=== PATIENT | female | born 2000 | race American Indian/Alaskan Native ===

== ENCOUNTER 2018-09-09 21:28 | Inpatient (IN) | payer BC ==
[~2018-09-09] VITALS: Ht 157.5 cm; Wt 83.0 kg
[~2018-09-09 21:28] MED LIST: PROMETHAZINE12.5 M1 PO; ZOFRAN ODT4 MG PO
--- NOTE | 2018-09-10 07:41 | PR ---
[facility] [address] [facility] [place], [place] [address] Signed Progress Notes IP Datetime Report Generated by CPN: 09/10/2018 07:41 PROGRESS NOTES: [id number] Impression: Normal progression of labor Procedures: Artificial ROM Plan: Continue present management; Anticipate Vaginal Delivery VITAL SIGNS: [id number] Vital Signs: Reviewed; Within Normal Limits EXAM: [id number] Dilatation: 4.0 Effacement: 100 Station: -1 Uterine Contractions: every 4-5 min MEMBRANES: [id number] Membrane Status: Ruptured Amniotic Fluid Color: Clear ROM Note: AROM easily done, with moderated fluid Comments: Comfortable with Epidural Fetus A: [id number] FHR Baseline: 130 Variability: Moderate 6-25bpm Accelerations: 15X15 Presentation: Vertex Fetus B: [id number] Signing Physician: Abdiel Corona MD Copies: ~ *Electronically Signed* 09/10/18 0741 ABDIEL CORONA MD PATIENT NAME: KADEN MONIQUE PROGRESS NOTE DATE OF : 98 PHYSICIAN: ABDIEL CORONA MD RPT #: [id number] REPORT IS CONFIDENTIAL AND NOT TO BE RELEASED WITHOUT AUTHORIZATION
--- NOTE | 2018-09-10 11:11 | PR ---
[facility] [address] [facility] [place], [place] [address] Signed Progress Notes IP Datetime Report Generated by CPN: 09/10/2018 11:11 PROGRESS NOTES: [id number] Impression: Slow Progression of Labor Procedures: Intrauterine Pressure Catheter; Scalp Electrode Plan: Continue present management VITAL SIGNS: [id number] Vital Signs: Reviewed; Within Normal Limits EXAM: [id number] Dilatation: 6.0 Effacement: 100 Station: -1 Uterine Contractions: every 2-4 minutes MEMBRANES: [id number] Membrane Status: Ruptured Amniotic Fluid Color: Clear ROM Note: AROM easily done, with moderated fluid Comments: No manager of change past 2 hours, contractions not feeling strong, but patient getting uncomfortable. Internal monitors placed. WIll get EPidural redose, then start Pitocin augmentation. Fetus A: [id number] FHR Baseline: 140 Variability: Moderate 6-25bpm Accelerations: 15X15 Presentation: Vertex Fetus B: [id number] Signing Physician: Abdiel Corona MD Copies: ~ *Electronically Signed* 09/10/18 1111 ABDIEL CORONA MD PATIENT NAME: KADEN MONIQUE NIDIA PROGRESS NOTE DATE OF : 98 PHYSICIAN: ABDIEL CORONA MD RPT #: [id number] REPORT IS CONFIDENTIAL AND NOT TO BE RELEASED WITHOUT AUTHORIZATION
--- NOTE | 2018-09-10 13:30 | PR ---
[facility] [address] [facility] [place], [place] [address] Signed Progress Notes IP Datetime Report Generated by CPN: 09/10/2018 13:30 PROGRESS NOTES: [id number] Impression: Normal progression of labor Procedures: Intrauterine Pressure Catheter; Scalp Electrode Plan: Continue present management VITAL SIGNS: [id number] Vital Signs: Reviewed; Within Normal Limits EXAM: [id number] Dilatation: 9.0 Effacement: 100 Station: -1 Uterine Contractions: every 2 minutes MEMBRANES: [id number] Membrane Status: Ruptured Amniotic Fluid Color: Clear ROM Note: AROM easily done, with moderated fluid Comments: Getting very uncomfortable again, head not well-applied to cervix, seems posterior. Try "hands-knees" position. Anesthesia called for redose of Epidural. Fetus A: [id number] FHR Baseline: 130 Variability: Moderate 6-25bpm Accelerations: 15X15 Presentation: Vertex Other Presentation: LOP Fetus B: [id number] Signing Physician: Abdiel Corona MD Copies: ~ *Electronically Signed* 09/10/18 6915 ABDIEL CORONA MD PATIENT NAME: KADEN MONIQUE PROGRESS NOTE DATE OF : 98 PHYSICIAN: ABDIEL CORONA MD RPT #: [id number] REPORT IS CONFIDENTIAL AND NOT TO BE RELEASED WITHOUT AUTHORIZATION
--- NOTE | 2018-09-10 15:21 | PR ---
[facility] [address] [facility] [place] [address] Signed Progress Notes IP Datetime Report Generated by CPN: 09/10/2018 15:20 PROGRESS NOTES: [id number] Impression: Slow Progression of Labor Procedures: Intrauterine Pressure Catheter; Scalp Electrode Plan: Continue present management VITAL SIGNS: [id number] Vital Signs: Reviewed; Within Normal Limits EXAM: [id number] Dilatation: 8.0 Effacement: 90 Station: -1 Uterine Contractions: every 2 minutes MEMBRANES: [id number] Membrane Status: Ruptured Amniotic Fluid Color: Clear ROM Note: AROM easily done, with moderated fluid Comments: Comfortable with Epidural, good contraction pattern, but cervix less dilated and thicker, with increased caput on head. HAve tried "hands-knees" and right side, will try left side. Discussed possible C/S if no progress soon. Will continue labor at this time. Fetus A: [id number] FHR Baseline: 130 Variability: Moderate 6-25bpm Accelerations: 15X15 Presentation: Vertex Other Presentation: LOP Fetus B: [id number] Signing Physician: Abdiel Corona MD Copies: ~ *Electronically Signed* 09/10/18 1520 ABDIEL CORONA MD PATIENT NAME: KADEN MONIQUE PROGRESS NOTE DATE OF : 98 PHYSICIAN: ABDIEL CORONA MD RPT #: [id number] REPORT IS CONFIDENTIAL AND NOT TO BE RELEASED WITHOUT AUTHORIZATION
--- NOTE | 2018-09-10 16:02 | PR ---
[facility] [address] [place], [place] [address] Signed Progress Notes IP Datetime Report Generated by CPN: 09/10/2018 16:02 PROGRESS NOTES: [id number] Impression: Arrest of dilatation/descent Procedures: Intrauterine Pressure Catheter; Scalp Electrode Other Procedures: stop Pitocin Plan: Deliver- Section Informed Consent Obtain: Section Delivery VITAL SIGNS: [id number] Vital Signs: Reviewed; Within Normal Limits EXAM: Z5134143 Dilatation: 8.0 Effacement: 90 Station: -1 Uterine Contractions: every 2-3 minutes MEMBRANES: [id number] Membrane Status: Ruptured Amniotic Fluid Color: Clear ROM Note: AROM easily done, with moderated fluid Comments: No progress for 3.5 hours, despite Pitocin and position change, now with increasing caput. Recommend C/S for Failure to Descend/probble CPD. Discussed procedure, risks/benefits, timing with patient, questions answered. PAtient agrees. Consent signed. Nursing screedman called. call worker to OR for Primary C/S. Fetus A: [id number] FHR Baseline: 130 Variability: Moderate 6-25bpm Accelerations: 15X15 Presentation: Vertex Other Presentation: LOP Fetus B: [id number] Signing Physician: Abdiel Corona MD Copies: ~ *Electronically Signed* 09/10/18 3812 ABDIEL CORONA MD PATIENT NAME: KADEN MONIQUE PROGRESS NOTE DATE OF : 98 PHYSICIAN: ABDIEL CORONA MD RPT #: [id number] REPORT IS CONFIDENTIAL AND NOT TO BE RELEASED WITHOUT AUTHORIZATION
--- NOTE | 2018-09-10 17:33 | NUR ---
09/10/18 1733 Ela Snell 1721- PT ARRIVES TO [facility] ROOM 105. PT ALERT. RESP EVEN AND UNLABORED. OXYGEN SAT HIGH 90'S ON RA. PT'S SIGNIFICANT OTHER AND BABY AT THE BEDSIDE. IV INFUSING WITH LR AND 30 UNITS OF PITOCIN. IV WNL. 1727- SUZAN RN AT THE BEDSIDE TO ASSIST PT WITH BREAST FEEDING. BABY TO RIGHT BREAST.
--- NOTE | 2018-09-11 13:23 | PR ---
[facility] [address] [facility] [place], [place] [address] Signed PP Progress Notes Datetime Report Generated by CPN: 09/11/2018 13:23 SUBJECTIVE: [id number] Pain: Within normal limits Nausea/Vomiting: Denies Vital Signs: [id number] Vital Signs: Reviewed; Within Normal Limits Notable Details: PP Hgb/Hct = 9.2/27.7 EXAM: C7050131 Abdomen/Uterus: Normal Lochia: Normal Extremities: Normal Incision: Normal IMPRESSION/PLAN/PROCEDURES: Z9986171 Impression: Normal progression Plan: Continue present management Procedures: None Progress Notes: Doing well, without complaint, eating, voiding without difficulty, dressing clean and dry. Increase activity as tolerated. Signing Physician: Abdiel Corona MD Copies: ~ *Electronically Signed* 09/11/18 1323 ABDIEL CORONA MD PATIENT NAME: KADEN MONIQUE PROGRESS NOTE DATE OF : 98 PHYSICIAN: ABDIEL CORONA MD RPT #: [id number] REPORT IS CONFIDENTIAL AND NOT TO BE RELEASED WITHOUT AUTHORIZATION
--- NOTE | 2018-09-12 10:39 | PR ---
[facility] [address] [facility] [place], [place] [address] Signed PP Progress Notes Datetime Report Generated by CPN: 09/12/2018 10:38 SUBJECTIVE: [id number] Pain: Within normal limits Nausea/Vomiting: Denies Vital Signs: K3655712 Vital Signs: Reviewed; Within Normal Limits Notable Details: PP Hgb/Hct = 9.2/27.7 EXAM: W5259150 Abdomen/Uterus: Normal Lochia: Normal Extremities: Normal Incision: Normal IMPRESSION/PLAN/PROCEDURES: [id number] Impression: Normal progression Other Impression: PP Anemia Plan: Continue present management Procedures: None Progress Notes: Doing well, slowly improving, but worried about going home today. Will watch 1 more day, home tomorrow. Signing Physician: Abdiel Corona MD Copies: ~ *Electronically Signed* 09/12/18 [facility] ABDIEL CORONA MD PATIENT NAME: KADEN MONIQUE PROGRESS NOTE DATE OF : 98 PHYSICIAN: ABDIEL CORONA MD RPT #: [id number] REPORT IS CONFIDENTIAL AND NOT TO BE RELEASED WITHOUT AUTHORIZATION
--- NOTE | 2018-09-13 09:47 | PR ---
[facility] [address] [place], [place] [address] Signed PP Progress Notes Datetime Report Generated by CPN: 09/13/2018 09:47 SUBJECTIVE: [id number] Pain: Within normal limits Nausea/Vomiting: Denies Flatus: Yes Bowel Movement: No Vital Signs: [id number] Vital Signs: Reviewed; Within Normal Limits Notable Details: PP Hgb/Hct = 9.2/27.7 EXAM: [id number] Cardiovascular: Normal Respiratory: Normal Abdomen/Uterus: Normal Lochia: Normal Vulva/Perineum: Not Done Breasts: Not Done CVA Tenderness: Normal Extremities: Normal Incision: Normal Progress: Normal Exam Comments: Fundus Firm U-2 nontender. Incision healing well w/ devonte in place IMPRESSION/PLAN/PROCEDURES: [id number] Impression: Normal progression Other Impression: PP Anemia Plan: Remove devonte; Discharge Procedures: None Progress Notes: Pt seen and examined. Doing well. Ambulating, voiding, and tolerating full diet. Pain and lochia minimal. well. No fevers/chills/lightheadedness. Desires d/c home. Planning condoms/natural family planning for contraception. Signing Physician: Heladio Milian DO Copies: ~ *Electronically Signed* 09/13/18 0947 HELADIO MILIAN DO PATIENT NAME: KADEN MONIQUE PROGRESS NOTE DATE OF : 98 PHYSICIAN: HELADIO MILIAN #: [id number] REPORT IS CONFIDENTIAL AND NOT TO BE RELEASED WITHOUT AUTHORIZATION
--- NOTE | 2018-09-13 14:38 | PR ---
[facility] [address] [place], [place] [address] Signed PP Progress Notes Datetime Report Generated by CPN: 09/13/2018 14:38 SUBJECTIVE: [id number] Pain: Within normal limits Nausea/Vomiting: Denies Flatus: Yes Bowel Movement: No Vital Signs: X3019476 Vital Signs: Reviewed Notable Details: PP Hgb/Hct = 9.2/27.7 EXAM: [id number] Cardiovascular: Normal Respiratory: Normal Abdomen/Uterus: Normal Lochia: Normal Vulva/Perineum: Not Done Breasts: Not Done CVA Tenderness: Normal Extremities: Normal Incision: Abnormal Progress: Normal Exam Comments: Incision with large amount of sanguinous drainage. Wound probed and fascia intact. Hematoma in central part of wound drained. Wound then packed with gauze and moistened with saline. IMPRESSION/PLAN/PROCEDURES: [id number] Impression: Normal progression Other Impression: wound hematoma now drained Plan: Discharge Other Plans: wet to dry dressings bid Procedures: None Progress Notes: Wound hematoma now drained. Will discharge home with wet to dry dressings bid and begin Augmentin 875 bid. Will need f/u in the office tomorrow. Signing Physician: Elizabeth Carey MD Copies: ~ *Electronically Signed* 09/13/18 1436 ELIZABETH CAREY MD PATIENT NAME: KADEN MONIQUE PROGRESS NOTE DATE OF : 98 PHYSICIAN: ELIZABETH CAREY MD RPT #: [id number] REPORT IS CONFIDENTIAL AND NOT TO BE RELEASED WITHOUT AUTHORIZATION
== END 2018-09-13 15:45 | disposition home or self-care (01) | DRG 787 ==
LOC: FBCO 21:28 → FBC 21:55
PROVIDERS: ADMIT General Practice
PROC: 00HU33Z Insertion of Infusion Device into Spinal Canal, Percutaneous Approach (ICD-10-PCS; 2018-09-09)
PROC: 3E0R3BZ Introduction of Anesthetic Agent into Spinal Canal, Percutaneous Approach (ICD-10-PCS; 2018-09-09)
PROC: 10907ZC Drainage of Amniotic Fluid, Therapeutic from Products of Conception, Via Natural or Artificial Opening (ICD-10-PCS; 2018-09-10)
PROC: 10H07YZ Insertion of Other Device into Products of Conception, Via Natural or Artificial Opening (ICD-10-PCS; 2018-09-10)
PROC: 10D00Z1 Extraction of Products of Conception, Low, Open Approach (ICD-10-PCS; principal; 2018-09-10 16:17)
DX: O33.9 Maternal care for disproportion, unspecified (principal); O99.324 Drug use complicating childbirth; Z3A.40 40 weeks gestation of pregnancy; Z37.0 Single live birth; O32.4XX0 Maternal care for high head at term, not applicable or unspecified; O90.81 Anemia of the puerperium; D64.9 Anemia, unspecified; O90.2 Hematoma of obstetric wound; F12.90 Cannabis use, unspecified, uncomplicated; O69.81X0 Labor and delivery complicated by cord around neck, without compression, not applicable or unspecified; Z87.891 Personal history of nicotine dependence
CPT/HCPCS: 01961; 36415; 85027; J0131; J0690; J1644; J1885; J2274; J2405; J2550; J2590; J7120

== ENCOUNTER 2019-02-20 23:41 | Emergency (ER) | payer OTHER ==
[~2019-02-20] VITALS: Ht 157.5 cm; Wt 73.0 kg
--- OUTSIDE RECORDS SUMMARY | ~2019-02-20 | XMS | Encounter Summary ---
Demographics + + + | Address | [address] [place] [address] | | | [place] [address] | + + + | Home Phone | | + + + | Preferred Language | Unknown | + + + | Marital Status | Single | + + + | Adventism Affiliation | Unknown | + + + | Race | Unknown | + + + | Ethnic Group | Unknown | + + + Author + + + | Author | [facility] | | | and Shashankana | + + + | Organization | [facility] | | | and [facility]ank[facility] | + + + | Address | Unknown | + + + | Phone | Unavailable | + + + Care Team Providers + +------+ + | Care Wood Machinist Name | Role | Phone | + +------+ + | Carolina Tapia MD | PCP | | + +------+ + Reason for Referral Evaluate & Treat (Routine) +--------+ + + + + + | Status | Reason | Specialty | Diagnoses / | Referred By | Referred To | | | | | Procedures | Contact | Contact | +--------+ + + + + + | Closed | Specialty | Otolaryngolog | Diagnoses | Jonathan, | Joshua Castillo | | | Services | y | Chronic | Joshua Anthony MD | MD [place] | | | Required | | tonsillitis | [address] | | | | | Unspecified | [address] | | | | | chronic | [place], | | | | | disease of | [place], [place] | [place] [address] | | | | | tonsils and | [address] | Phone: | | | | | adenoids | Phone: | [phone] | | | | | Procedures | [phone] | Fax: | | | | | CT REMOVE | Fax: | [phone] | | | | | TONSILS/LAMONTE | [phone] | | | | | | OIDS,10+ Y/O | | | +--------+ + + + + + Encounter Details +--------+ + + + + | Date | Type | Department | Care Team | Description | +--------+ + + + + | 05/16/ | Orders Only | [facility] | Joshua Castillo MD | Chronic tonsillitis | | 2015 | | OTOLARYNGOLOGY [address] | [address] [place] | (Primary Dx) | | | | [address] | [address] [place], | | | | | [place] | [place] [address] | | | | | [address] | [phone] | | | | | [phone] | | | +--------+ + + + + Social History + +-------+ +--------+------+ | Tobacco Use | Types | Packs/Day | Years | Date | | | | | Used | | + +-------+ +--------+------+ | Never Smoker | | | | | + +-------+ +--------+------+ + + +---------+ + | Alcohol Use | Drinks/Week | oz/Week | Comments | + + +---------+ + | Not Asked | | | | + + +---------+ + + + + | Sex Assigned at | Date Recorded | | | | + + + | Not on file | | + + + + + + + | Job Start Date | Occupation | Industry | + + + + | Not on file | Not on file | Not on file | + + + + + + + + | Travel History | Travel Start | Travel End | + + + + + + | No recent travel history available. | + + documented as of this encounter Plan of Treatment + + +--------+ + + | Name | Type | Priori | Associated Diagnoses | Order Schedule | | | | ty | | | + + +--------+ + + | Ambulatory referral | Outpatient | Routin | Chronic | Expected: | | to ENT | Referral | e | tonsillitis | 05/16/2014, Expires: | | | | | | 05/16/2015 | + + +--------+ + + documented as of this encounter Visit Diagnoses + + | Diagnosis | + + | Chronic tonsillitis - Primary | + + documented in this encounter"
--- OUTSIDE RECORDS SUMMARY | ~2019-02-20 | XMS | Encounter Summary ---
Demographics + + + | Address | [address] [place] [address] | | | [place] [address] | + + + | Home Phone | | + + + | Preferred Language | Unknown | + + + | Marital Status | Single | + + + | Christianity Affiliation | Unknown | + + + | Race | Unknown | + + + | Ethnic Group | Unknown | + + + Author + + + | Author | [facility] | | | and [facility]ank[facility] | + + + | Organization | [facility] | | | and Shashankana | + + + | Address | Unknown | + + + | Phone | Unavailable | + + + Care Team Providers + +------+ + | Care Firearms Inspector Name | Role | Phone | + +------+ + | Carolina Tapia MD | PCP | | + +------+ + Reason for Visit + + + | Reason | Comments | + + + | Procedure | surgery date | + + + Encounter Details +--------+ + + + + | Date | Type | Department | Care Team | Description | +--------+ + + + + | 05/31/ | Telephone | [facility] [place] | Joshua Castillo MD | Procedure (surgery | | 2014 | | OTOLARYNGOLOGY [address] | [address] [place] | ) | | | | [address] | [address] [place], | | | | | [place], [place] | [place] [address] | | | | | [address] | [phone] | | | | | [phone] | | | +--------+ + + + [...] as of this encounter Plan of Treatment Not on filedocumented as of this encounter Visit Diagnoses Not on filedocumented in this encounter"
--- OUTSIDE RECORDS SUMMARY | ~2019-02-20 | XMS | Encounter Summary ---
Demographics + + + | Address | [address] [place] [address] | | | [place] [address] | + + + | Home Phone | | + + + | Preferred Language | Unknown | + + + | Marital Status | Single | + + + | Mosque Affiliation | Unknown | + + + | Race | Unknown | + + + | Ethnic Group | Unknown | + + + Author + + + | Author | [facility] | | | and Shashankana | + + + | Organization | [facility] | | | and Shashankana | + + + | Address | Unknown | + + + | Phone | Unavailable | + + + Care Team Providers + +------+ + | Care Product Marketing Programs Manager Name | Role | Phone | + +------+ + | Carolina Tapia MD | PCP | | + +------+ + Reason for Visit Auth/Cert +--------+--------+ + + + + | Status | Reason | Specialty | Diagnoses / | Referred By | Referred To | | | | | Procedures | Contact | Contact | +--------+--------+ + + + + | Closed | | | Diagnoses | | | | | | | Chronic | | | | | | | tonsillitis | | | | | | | Chronic | | | | | | | tonsillitis | | | | | | | Procedures | | | | | | | [place] REMOVAL | | | | | | | OF | | | | | | | TONSILS,12+ | | | | | | | Y/O [place] | | | | | | | REMOVAL | | | | | | | ADENOIDS,CHARLY | | | | | | | BEE,10+ Y/O | | | | | | | | | | | | | | TONSILLECTOM | | | | | | | Y AND | | | | | | | ADENOIDECTOM | | | | | | | Y | | | +--------+--------+ + + + + Encounter Details +--------+ + + + + | Date | Type | Department | Care Team | Description | +--------+ + + + + | 07/04/ | Hospital | [facility] | Joshua Castillo MD | Chronic tonsillitis | | 2015 | Encounter | MED CTR OR [facility] OP | [address] [facility] | (Primary Dx) | | | | [address] | [address], | | | | | [place] | [place] [address] | | | | | [address] | [phone] | | | | | [phone] | | | +--------+ + + + + Social History + +-------+ +--------+------+ | Tobacco Use | Types | Packs/Day | Years | Date | | | | | Used | | + +-------+ +--------+------+ | Never Smoker | | | | | + +-------+ +--------+------+ + +---+---+---+ | Smokeless Tobacco: | | | | | Never Used | | | | + +---+---+---+ + + +---------+ + | Alcohol Use | Drinks/Week | oz/Week | Comments | + + +---------+ + | No | | | | + + +---------+ [...] + + documented as of this encounter Last Filed Vital Signs + + + + + | Vital Sign | Reading | Time Taken | Comments | + + + + + | Blood Pressure | 112/82 | 07/04/2014 1:10 PM | | | | | PDT | | + + + + + | Pulse | 60 | 07/04/2014 1:10 PM | | | | | PDT | | + + + + + | Temperature | 36.4 C (97.5 F) | 07/04/2014 1:10 PM | | | | | PDT | | + + + + + | Respiratory Rate | 11 | 07/04/2014 1:10 PM | | | | | PDT | | + + + + + | Oxygen Saturation | 99% | 07/04/2014 1:10 PM | | | | | PDT | | + + + + + | Inhaled Oxygen | - | - | | | Concentration | | | | + + + + + | Weight | 57.7 kg (127 lb 1.6 | 07/04/2014 9:00 AM | | | | oz) | PDT | | + + + + + | Height | 154.9 cm (5' 1") | 07/04/2014 9:00 AM | | | | | PDT | | + + + + + | Body Mass Index | 24.02 | 07/04/2014 9:00 AM | | | | | PDT | | + + + + + documented in this encounter Discharge Instructions Instructions Joshua Castillo MD - 07/04/2014 After Tonsillectomy/Adenoidectomy Your child has had surgery to remove tonsils and/or adenoids. Your child will need time to get better. Below are guidelines for your child s recovery. Pain and Activity Expect your child to have some throat or ear pain for 1 2 weeks. Limit activity for 1 2 weeks or as advised. Diet Make sure your child gets enough fluids and nutrients. Food and drink guidelines include: Give lots of fluids. Good choices are water, popsicles, and mild juices. (Do not give ci trus juice or other acidic juices.) Give soft foods to eat. These include gelatin, pudding, ice cream, scrambled eggs, pasta , and mashed foods. Do not give spicy, acidic, or rough foods. These include fresh fruits, toast, crackers, and potato chips. Medication Give only medications approved by your child s health care provider. Follow directions marta beckford when giving your child medications. Your child may be prescribed pain medication. Do not give your child ibuprofen or aspirin. They may cause bleeding. If needed for disc omfort, you can give your child acetaminophen instead. When to Call Your Child's Health Care Provider Mild pain and a slight fever are normal after surgery. The surgical site will turn whitish while it is healing. This is normal and not an infection.But call your child's health care provider right away if your otherwise healthy child has any of the following: Persistent fever: In a child 3 to 36 months, a rectal temperature of 102F (39.0C) or higher In a child of any age who has a temperature of 103F (39.4C) or higher A fever that lasts more than 24-hours in a child under 2 years old, or for 3 days in a c hild 2 years or older Your child has had a seizure caused by the fever Severe pain not relieved by medication Bright red bleeding, which includes fast bleeding, spitting, or coughing up a large clot , or blood-tinged spit that continues Trouble breathing [id number] [employer] [address] [place] [address]. All rig ts reserved. This information is not intended as a substitute for professional medical care. Always follow your healthcare professional's instructions. Tonsillectomy/Adenoidectomy Your child may be having surgery to remove the tonsils or adenoids. If required, the tonsil s and adenoids can be removed during the same surgery. The two procedures are described bridgette magallon. Tonsillectomy Tonsillectomy is surgery to remove the tonsils. The tonsils are two small masses of tissue that help the body fight disease. They are located in the back of the throat, behind and abo ve the tongue. The tonsils are easily seen. Tonsillectomy may be performed if enlarged tonsi ls make it hard to breathe, or if the tonsils are often infected. Adenoidectomy Adenoidectomy is surgery to remove the adenoids. The word adenoids refers to a single mass of tissue that helps the body fight disease. This mass is located behind the nose and upper throat, near the passage to the middle ear (eustachian tube). It is hidden from view b y the soft palate. Adenoidectomy may be needed if enlarged adenoid tissue obstructs breathin g. It may also be done if infected adenoid tissue is causing ear infections. removal of the tonsils and adenoids is one of the most common surgical procedures. Although the tonsils and adenoids help to fight infections, the body's ability to fight infection is not negatively affected when the tonsils and adenoids are removed. [id number] [employer] [address] [place] [address]. All righ ts reserved. This information is not intended as a substitute for professional medical care. Always follow your healthcare professional's instructions. documented in this encounter Medications at Time of Discharge + + + +---------+ + + | Medication | Sig | Dispensed | Refills | Start | End Date | | | | | | Date | | + + + +---------+ + + | | Take 5 mLs by mouth | 300 mL | 1 | 07/05/19 | | | Diphenhyd-Lidocaine- | every 4 hours as | | | 15 | | | Al Hydroxide-Mg | needed. | | | | | | Hydroxide-Simeth | | | | | | | (FIRST-MOUTHWASH | | | | | | | BLM) SUSP | | | | | | + + + +---------+ + + | ibuprofen (ADVIL, | Take 200-600 mg by | | 0 | | | | MOTRIN) 200 mg | mouth every 6 hours | | | | | | tablet | as needed for Pain. | | | | | + + + +---------+ + + | | Take 10 mLs by mouth | 473 mL | 0 | 07/05/19 | | | HYDROcodone-acetamin | 4 times daily as | | | 15 | 5 | | ophen (HYCET) | needed for Pain for | | | | | | 7.5-325 mg/15 mL | up to 10 days. | | | | | | liquid | | | | | | + + + +---------+ + + documented as of this encounter Plan of Treatment Not on filedocumented as of this encounter Procedures + +--------+ + + + | Procedure Name | Priori | Date/Time | Associated Diagnosis | Comments | | | ty | | | | + +--------+ + + + | TONSILLECTOMY | | 07/04/2014 | Chronic | | | | | 11:36 AM | tonsillitis | | | | | PDT | | | + +--------+ + + + | POCT TEST, | Routin | 07/04/2014 | | Results for this | | URINE, QUAL | e | 10:31 AM | | procedure are in the | | | | PDT | | results section. | + +--------+ + + + documented in this encounter Results POCT Test, Urine, Qual (07/04/2014 10:31 AM PDT) + + + + + + | Component | Value | Ref Range | Performed | Pathologist | | | | | At | Signature | + + + + + + | | Negative | | | | | Test, | | | | | | Urine, POC | | | | | + + + + + + | Specific | | | | | | [place], | | | | | | POC | | | | | + + + + + + | Internal QC | Acceptable | | | | + + + + + + | Lot Number | [id number] | | | | + + + + + + | Expiration | 2016- | | | | | Date | | | | | + + + + + + + + | Specimen | + + | Urine specimen | | (specimen) | + + documented in this encounter Visit Diagnoses + + | Diagnosis | + + | Chronic tonsillitis - Primary | + + documented in this encounter Administered Medications + + + +--------+------+------+ | Medication Order | MAR | Action | Dose | Rate | Site | | | Action | Date | | | | + + + +--------+------+------+ | fentaNYL injection 25-50 mcg | Given by | 07/05/19 | 25 mcg | | | | 25-50 mcg, Intravenous, EVERY 5 | Other | 15 1:13 | | | | | MIN PRN, Pain, Starting Tue | | PM PDT | | | | | 07/04/14 at 1214, Maximum total | | | | | | | dose 250 mcg. PACU IV Narcotic | | | | | | | Priority: Only use fentanyl for | | | | | | | immediate post-op pain (one dose) | | | | | | | or breakthrough pain when any | | | | | | | other IV narcotics ordered have | | | | | | | been ineffective (if ordered). | | | | | | | If both morphine and | | | | | | | hydromorphone are ordered, use | | | | | | | morphine first, and use | | | | | | | hydromporphone if morphine | | | | | | | ineffective., Recovery/Phase I | | | | | | + + + +--------+------+------+ +-------+ +--------+---+---+ | Given | 07/05/19 | 25 mcg | | | | | 15 1:09 | | | | | | PM PDT | | | | +-------+ +--------+---+---+ | Given | 07/05/19 | 25 mcg | | | | | 15 1:03 | | | | | | PM PDT | | | | +-------+ +--------+---+---+ +---+---+ | | | +---+---+ + +-------+ +--------+---+---+ | HYDROcodone-acetaminophen | Given | 07/05/19 | 10 mLs | | | | (HYCET) 7.5-325 mg/15 mL liquid | | 15 1:45 | | | | | 10 mL 10 mL (5 mg), Oral, EVERY | | PM PDT | | | | | 4 HOURS PRN, Pain, Starting Thu | | | | | | | 07/04/14 at 1322, Use for patients | | | | | | | unable to swallow tablets if | | | | | | | ordered. If ineffective use | | | | | | | oxyCODONE-acetaminophen (ROXICET) | | | | | | | 5-325 if ordered. If not | | | | | | | tolerated, use oxyCODONE | | | | | | | (ROXICODONE) 1 mg/mL if ordered., | | | | | | | Post-op/Phase II | | | | | | + +-------+ +--------+---+---+ +---+---+ | | | +---+---+ + +-------+ +--------+---+---+ | HYDROmorphone (DILAUDID) | Given | 07/05/19 | 0.5 mg | | | | injection 0.2-0.5 mg 0.2-0.5 mg, | | 15 1:57 | | | | | Intravenous, EVERY 5 MIN PRN, | | PM PDT | | | | | Pain, Starting 07/04/14 at | | | | | | | 1214, Maximum total dose 4 mg. | | | | | | | PACU IV Narcotic Priority: Only | | | | | | | use fentanyl for immediate | | | | | | | post-op pain (one dose) or | | | | | | | breakthrough pain when any other | | | | | | | IV narcotics ordered have been | | | | | | | ineffective (if ordered). If | | | | | | | both morphine and hydromorphone | | | | | | | are ordered, use morphine first, | | | | | | | and use hydromporphone if | | | | | | | morphine ineffective., | | | | | | | Recovery/Phase I | | | | | | + +-------+ +--------+---+---+ +---+---+ | | | +---+---+ + +---------+ +---+-------+---+ | lactated ringers (LR) infusion | New Bag | 07/05/19 | | 100 | | | at 10-100 mL/hr, Intravenous, | | 15 10:25 | | mL/hr | | | CONTINUOUS, Starting 07/04/14 | | AM PDT | | | | | at 1015, TKO., Pre-op | | | | | | + +---------+ +---+-------+---+ +---+---+ | | | +---+---+ + +-------+ +-------+---+---+ | magic mouthwash 5 mL 5 mL, | Given | 07/05/19 | 5 mLs | | | | Oral, EVERY 4 HOURS PRN, Pain, | | 15 1:55 | | | | | Starting 07/04/14 at 1346, | | PM PDT | | | | | Shake well., Post-op/Phase II | | | | | | + +-------+ +-------+---+---+ +---+---+ | | | +---+---+ documented in this encounter
--- OUTSIDE RECORDS SUMMARY | ~2019-02-20 | XMS | Encounter Summary ---
Demographics + + + | Address | [id number] [place] [address] | | | [place] [address] | + + + | Home Phone | | + + + | Preferred Language | Unknown | + + + | Marital Status | Single | + + + | Christianity Affiliation | Unknown | + + + | Race | Unknown | + + + | Ethnic Group | Unknown | + + + Author + + + | Author | [facility] | | | and Shashankana | + + + | Organization | [facility] | | | and Shashankana | + + + | Address | Unknown | + + + | Phone | Unavailable | + + + Care Team Providers + +------+ + | Care Motor Vehicle Representative Name | Role | Phone | + [...] | | | | | | | [place] | | | | | | | OF | | | | | | | TONSILS,12+ | | | | | | | Y/O [place] | | | | | | | [...] + + + + | 07/04/ | Anesthesia | [facility] | Josesito Larios | | | 2014 | Event | MED CTR OR INTRA OP | MD Nii [address] | | | | | [address] | [address] [place] | | | | | [place] | [address] | | | | | [address] | | | | | | [phone] | | | +--------+ + + + + Anesthesia Record + + + + + | Procedure Name | Responsible | Anesthesia Start | Anesthesia Stop Time | | | Anesthesiologist | Time | | + + + + + | Tonsillectomy (N/A | Josesito Larios, | 07/04/14 1147 | 07/04/14 1223 | | Wendy) | MD | | | + + + + + +----+---+ + + | Da | T | Event | Comment | | te | i | | | | | m | | | | | e | | | +----+---+ + + | 04 | 1 | | | | /1 | 1 | | | | 4/ | 3 | | | | 20 | 9 | | | | 15 | | | | +----+---+ + + | | 1 | Beta | {:[id number]::"The patient took a beta-nirav the day prior to | | | 1 | Nirav | surgery.","The patient took a beta-nirav today.","The patient's | | | 4 | Declined | systolic blood pressure is below 120mmHg.","The patient's heart | | | 0 | | rate is below 60.","The patient is having a cardiac procedure | | | | | today.","The patient is not on a beta-nirav at home."} | +----+---+ + + | | 1 | An Checkout | Pre-use anesthesia machine/equipment checkout. | | | 1 | | | | | 4 | | | | | 0 | | | +----+---+ + + | | 1 | An Start | Versed 2 mg IV to room 3. Reassessment prior to anesthesia | | | 1 | | induction/procedure. | | | 4 | | | | | 7 | | | +----+---+ + + | | 1 | an tree now | | | | 1 | | | | | 5 | | | | | 0 | | | +----+---+ + + | | 1 | AN | Per surgeon request | | | 1 | Antibiotic | | | | 5 | declined | | | | 5 | | | +----+---+ + + | | 1 | Preoxygenat | | | | 1 | ed | | | | 5 | | | | | 5 | | | +----+---+ + + | | 1 | An | | | | 1 | Induction | | | | 5 | | | | | 6 | | | +----+---+ + + | | 1 | An | | | | 1 | Intubation | | | | 5 | | | | | 9 | | | +----+---+ + + | | 1 | Husser | | | | 2 | 43-degrees | | | | 0 | | | | | 4 | | | +----+---+ + + | | 1 | Husser off | | | | 2 | | | | | 1 | | | | | 6 | | | +----+---+ + + | | 1 | AN No | TOF 4/4 with sustained tetanus. | | | 2 | Residual | | | | 1 | NMB | | | | 6 | | | +----+---+ + + | | 1 | Breathing | | | | 2 | Spontaneous | | | | 1 | ly | | | | 6 | | | +----+---+ + + | | 1 | Oropharynx | | | | 2 | Suctioned | | | | 1 | | | | | 6 | | | +----+---+ + + | | 1 | An Stop | Patient handed off to recovery nurse. | | | 2 | | | | | 3 | | | +----+---+ + + +------+ | Meds | +------+ + +---------+ | Name | Total | + +---------+ | midazolam | 2 mg | + +---------+ | fentaNYL | 200 mcg | + +---------+ | lidocaine 2% (PF) | 60 mg | + +---------+ | propofol | 150 mg | + +---------+ | dexamethasone | 10 mg | + +---------+ | ondansetron | 4 mg | + +---------+ | dexmedetomidine (Bolus) | 20 mcg | + +---------+ | succinylcholine | 20 mg | + +---------+ | lactated ringers (LR) infusion | 600 mL | + +---------+ + + | Name | + + | N2O Flow Rate (L/Min) | + + | O2 Flow Rate (L/Min) | + + | Insp O2 | + + | Exp SEV | + + | Exp JOSE | + + | Air Flow Rate (L/Min) | + + + + | No blood administrations on file. | + + +--------+ + + + | Type | Details | Placement | Removal | +--------+ + + + | [READ | 07/04/14; 1025; short term use; | 07/04/14 1025 by | 07/04/14 1425 by Fortunato | | ONLY] | 07/04/14; 1425 | Bessie Ocasio | Charline Hernandez RN | | | | | | | Periph | | | | | eral | | | | | IV - | | | | | Single | | | | | Lumen | | | | | | | | | +--------+ + + + | Airway | Placement Date: 07/04/14; | 07/04/14 1159 by | 07/04/14 1249 by | | | Placement Time: 1159; Mask | Josesito Larios, | Eugenie Liu, | | | Ventilation: EZ; Airway Grade: I; | MD | RN | | | With: CP; Successful Technique: | | | | | Mac; Laryngoscope Blade Size: 3; | | | | | Attempts: 1; Airway Type: | | | | | endotracheal, cuffed, disposable; | | | | | Size: 6.5; Position: Left; | | | | | Airway Tube Secured At: 0.22 m | | | | | (8.66"); Tube Reference Point: | | | | | secure and patent, teeth; Trauma: | | | | | none; Other Equipment: tooth | | | | | guard; Placement Check: verified | | | | | by capnography, verified by | | | | | auscultation; Placed By: | | | | | Anesthesiologist; Removal: per | | | | | protocol, removed by RN; Removal | | | | | Date: 07/04/14; Removal Time: | | | | | 1249 | | | +--------+ + + + | Read | 04/14/15; 1212; throat; healing | 04/14/15 1212 by | 07/04/14 1425 by Fortunato | | only - | within expectations; 07/04/14; | Joey Kim RN | L ABHAY Hernandez | | | 1425 | | | | Incisi | | | | | on | | | | +--------+ + + + documented in this encounter Social History + +-------+ +--------+------+ | Tobacco [...] Visit Diagnoses Not on filedocumented in this encounter Administered Medications + +--------+ +-------+------+------+ | Medication Order | MAR | Action | Dose | Rate | Site | | | Action | Date | | | | + +--------+ +-------+------+------+ | dexamethasone (DECADRON) 10 | Given | 07/05/19 | 10 mg | | | | mg/mL injection Intravenous, | | 15 11:56 | | | | | PRN, Starting Thu07/04/14 at | | AM PDT | | | | | 1156, Anesthesia Intra-op | | | | | | + +--------+ +-------+------+------+ +---+---+ | | | +---+---+ + +-------+ +--------+---+---+ | dexmedetomidine (PRECEDEX) in | Given | 07/05/19 | 20 mcg | | | | sodium chloride bolus infusion | | 15 12:00 | | | | | Intravenous, PRN, Starting Tue | | PM PDT | | | | | 07/04/14 at 1200, Anesthesia | | | | | | | Intra-op | | | | | | + +-------+ +--------+---+---+ +---+---+ | | | +---+---+ + +-------+ +--------+---+---+ | fentaNYL injection PRN, Pain, | Given | 07/05/19 | 50 mcg | | | | Starting 07/04/14 at 1154, | | 15 12:07 | | | | | Anesthesia Intra-op | | PM PDT | | | | + +-------+ +--------+---+---+ +-------+ +---------+---+---+ | Given | 07/05/19 | 50 mcg | | | | | 15 12:01 | | | | | | PM PDT | | | | +-------+ +---------+---+---+ | Given | 07/05/19 | 100 mcg | | | | | 15 11:54 | | | | | | AM PDT | | | | +-------+ +---------+---+---+ +---+---+ | | | +---+---+ + +-------+ +-------+---+---+ | lidocaine (PF) 2% injection | Given | 07/05/19 | 60 mg | | | | PRN, Starting Thu07/04/14 at | | 15 11:56 | | | | | 1156, Anesthesia Intra-op | | AM PDT | | | | + +-------+ +-------+---+---+ +---+---+ | | | +---+---+ + +-------+ +------+---+---+ | midazolam (VERSED) 1 mg/mL | Given | 07/05/19 | 2 mg | | | | injection Intravenous, PRN, | | 15 11:47 | | | | | Anxiety, Starting 07/04/14 at | | AM PDT | | | | | 1147, Anesthesia Intra-op | | | | | | + +-------+ +------+---+---+ +---+---+ | | | +---+---+ + +-------+ +------+---+---+ | ondansetron (ZOFRAN) injection | Given | 07/05/19 | 4 mg | | | | PRN, Nausea, Vomiting, Starting | | 15 11:56 | | | | | 07/04/14 at 1156, Anesthesia | | AM PDT | | | | | Intra-op | | | | | | + +-------+ +------+---+---+ +---+---+ | | | +---+---+ + +-------+ +--------+---+---+ | propofol (DIPRIVAN) injection | Given | 07/05/19 | 150 mg | | | | PRN, Starting 07/04/14 at | | 15 11:56 | | | | | 1156, Anesthesia Intra-op | | AM PDT | | | | + +-------+ +--------+---+---+ +---+---+ | | | +---+---+ + +-------+ +-------+---+---+ | succinylcholine (ANECTINE) | Given | 07/05/19 | 20 mg | | | | injection Intravenous, PRN, | | 15 11:56 | | | | | Starting 07/04/14 at 1156, | | AM PDT | | | | | Anesthesia Intra-op | | | | | | + +-------+ +-------+---+---+ +---+---+ | | | +---+---+ documented in this encounter
--- OUTSIDE RECORDS SUMMARY | ~2019-02-20 | XMS | Encounter Summary ---
Demographics + + + | Address | [address] [place] [address] | | | [place] [address] | + + + | Home Phone | | + + + | Preferred Language | Unknown | + + + | Marital Status | Single | + + + | Christian Affiliation | Unknown | + + + | Race | Unknown | + + + | Ethnic Group | Unknown | + + + Author + + + | Author | [facility] | | | and Shashankana | + + + | Organization | [facility] | | | and Shashankana | + + + | Address | Unknown | + + + | Phone | Unavailable | + + + Care Team Providers + +------+ + | Care Freight Claim Investigator Name | Role | Phone | + [...] + + | 05/31/ | Telephone | [facility] [place] | Joshua Castillo MD | Procedure (surgery | | 2014 | | OTOLARYNGOLOGY [address] | [address] [place] | ) | | | | [address] [place] [address] | [address], | | | | | [place], [place] | [place] [address] | | | | | [address] | [phone] | | | | | [phone] | | | +--------+ + + + [...]
--- OUTSIDE RECORDS SUMMARY | ~2019-02-20 | XMS | Clinical Summary ---
Demographics + + + | Address | [address] [place] [address] | | | [place] [address] | + + + | Home Phone | | + + + | Preferred Language | Unknown | + + + | Marital Status | Single | + + + | Jain Affiliation | Unknown | + + + | Race | Unknown | + + + | Ethnic Group | Unknown | + + + Author + + + | Author | [facility] | | | and Shashankana | + + + | Organization | [facility] | | | and Shashankana | + + + | Address | Unknown | + + + | Phone | Unavailable | + + + Care Team Providers + +------+ + | Care Flat Lock Machine Operator Name | Role | Phone | + +------+ + | Pcp, Prov Inactive | PCP | | + +------+ + Allergies No Known Allergies Medications + + + +---------+------+------+-------+ | Medication | Sig | Dispensed | Refills | Star | End | Statu | | | | | | t | Date | s | | | | | | Date | | | + + + +---------+------+------+-------+ | ibuprofen (ADVIL, | Take 200-600 mg by | | 0 | | | Activ | | MOTRIN) 200 mg | mouth every 6 hours | | | | | e | | tablet | as needed for Pain. | | | | | | + + + +---------+------+------+-------+ | | Take 5 mLs by mouth | 300 mL | 1 | 04/1 | | Activ | | Diphenhyd-Lidocaine- | every 4 hours as | | | 4/20 | | e | | Al Hydroxide-Mg | needed. | | | 15 | | | | Hydroxide-Simeth | | | | | | | | (FIRST-MOUTHWASH | | | | | | | | BLM) SUSP | | | | | | | + + + +---------+------+------+-------+ Active Problems + + + | Problem | Noted Date | + + + | Unspecified chronic disease of tonsils and adenoids | 06/13/2014 | + + + + + | Overview: ICD-10 Record update | + + + + + | Chronic tonsillitis | 05/16/2014 | + + + Social History + +-------+ [...] recent travel history available. | + + Last Filed Vital Signs + + + + + | Vital Sign | Reading | Time Taken | Comments | + + + + + | Blood Pressure | 112/77 | 07/04/2014 2:10 PM | | | | | PDT | | + + + + + | Pulse | 66 | 07/04/2014 2:10 PM | | | | | PDT | | + + + + + | Temperature | 36.4 C (97.5 F) | 07/04/2014 1:10 PM | | | | | PDT | | + + + + + | Respiratory Rate | 16 | 07/04/2014 2:10 PM | | | | | PDT | | + + + + + | Oxygen Saturation | 99% | 07/04/2014 2:10 PM | | | | | PDT [...] | | + + + + + Plan of Treatment + + + + + | Health Maintenance | Due Date | Last Done | Comments | + + + + + | Well Child Check | | | | | | 2 | | | + + + + + | Vaccine: HPV (1 - | | | | | Female 3-dose | 4 | | | | series) | | | | + + + + + | Vaccine: | | | | | Dtap/Tdap/Td (1 - | 8 | | | | Tdap) | | | | + + + + + | Vaccine: Influenza | | | | | (#1) | 9 | | | + + + + + Results Not on filefrom Last 3 Months Insurance + +--------+ +--------+ +---------+--------+ | Payer | Benefi | Subscriber | Effect | Phone | Address | Type | | | t Plan | ID | mely | | | | | | / | | Dates | | | | | | Group | | | | | | + +--------+ +--------+ +---------+--------+ | [employer] | MOD[employer] | [id number] | 03/06/ | [phone] | | Medica | | MEDICAID HMO | HEALTH | | 2014-P | 1 | | id | | | MDCD | | resent | | | | | | HMO [place] | | | | | | + +--------+ +--------+ +---------+--------+ | [facility] | IHS | [id number] | 04/30/19 | | | Indemn | | SERVICE | YELLOW | | 15-Pre | | | ity | | | [place] | | sent | | | | + +--------+ +--------+ +---------+--------+ + +--------+ +--------+ + + | Guarantor Name | Accoun | Relation to | Date | Phone | Billing Address | | | t Type | Patient | of | | | | | | | | | | + +--------+ +--------+ + + | MITCHEL BLANCHARD | Person | Mother | [birth year] | [id number] [facility] | | | al/Fam | | 1982 | [phone] | [place] [address] | | | destiny | | | 8 (Home) | | + +--------+ +--------+ + + Advance Directives + + + + + | Type | Date Recorded | Patient | Explanation | | | | Digital Media Director | | + + + + + | Power of | | | | | Chemical Dependency Attendant | | | | + + + + + | Advance | 07/04/2014 8:59 | | | | Directive | AM | | | + + + + + + + + + + | Code Status | Date | Date | Comments | | | Activated | Inactivated | | + + + + + | Full Code | 07/04/2014 | 07/04/2014 | | | | 1:22 PM | 4:32 PM | | + + + + +
--- OUTSIDE RECORDS SUMMARY | ~2019-02-20 | XMS | Encounter Summary ---
Demographics + + + | Address | [address] [place] [address] | | | [place] [address] | + + + | Home Phone | | + + + | Preferred Language | Unknown | + + + | Marital Status | Single | + + + | Presybeterian Affiliation | Unknown | + + + | Race | Unknown | + + + | Ethnic Group | Unknown | + + + Author + + + | Author | [facility] | | | and Shashankana | + + + | Organization | [facility] | | | and Shashankana | + + + | Address | Unknown | + + + | Phone | Unavailable | + + + Care Team Providers + +------+ + | Care Fiberglass Dowel Drawing Operator Name | Role | Phone | [...] | | | | | | | [place] REMOVAL | | | | | | | OF | | | | | | | TONSILS,12+ | | | | | | | Y/O [place] | | | | | | | [...] +--------+--------+ + + + + Encounter Details +--------+---------+ + + + | Date | Type | Department | Care Team | Description | +--------+---------+ + + + | 07/04/ | Surgery | [facility] | Joshua Castillo MD | Tonsillectomy | | 2014 | | MED CTR OR INTRA OP | [address] [place] | | | | | [address] | [address] [place], | | | | | [place], [place] | [place] [address] | | | | | [address] | [phone] | | | | | [phone] | | | +--------+---------+ + + + Social History + +-------+ [...] or blood-tinged spit that continues Trouble breathing [id number] [employer]. [address] [place] [address]. All righ ts reserved. This information is [...] when the tonsils and adenoids are removed. [id number] [employer]. [address] [place] [address]. All righ ts reserved. This information is [...] Specific | | | | | | [place], | | | | | | POC [...] Diagnosis | + + | Chronic tonsillitis | + + documented in this encounter Administered Medications + +--------+ +------+------+------+ | Medication Order | MAR | Action | Dose | Rate | Site | | | Action | Date | | | | + +--------+ +------+------+------+ | Bismuth Subgallate KHALIF NUNEZN, | Given | 07/05/19 | 5 g | | | | Starting 07/04/14 at 1205, | | 15 12:05 | | | | | Intra-op | | PM PDT | | | | + +--------+ +------+------+------+ +---+---+ | | | +---+---+ + + + +--------+---+---+ | fentaNYL injection 25-50 mcg | Given [...] | | | | + + + +--------+---+---+ +-------+ +--------+---+---+ | Given | 07/05/19 | [...] | | 4 HOURS PRN, Pain, Starting Tue | | | | | | | [...] +---+---+ | | | +---+---+ + +-------+ +---------+---+---+ | lidocaine (XYLOCAINE) 2% | Given | 07/05/19 | 2.5 mLs | | | | viscous solution PRN, Starting | | 15 12:05 | | | | | 07/04/14 at 1205, Intra-op | | PM PDT | | | | + +-------+ +---------+---+---+ +---+---+ | | | +---+---+ + +-------+ +-------+---+ + | lidocaine 1%-EPINEPHrine | Given | 07/05/19 | 6 mLs | | Surgical | | 1:100,000 injection PRN, | | 15 12:05 | | | Site | | Starting Thu07/04/14 at 1205, | | PM PDT | | | | | Intra-op | | | | | | + +-------+ +-------+---+ + +---+---+ | | | +---+---+ + +-------+ +-------+---+---+ | magic mouthwash 5 mL 5 mL, | Given | 07/05/19 | 5 mLs | | | | Oral, EVERY 4 HOURS PRN, Pain, | | 15 1:55 | | | | | Starting Thu07/04/14 at 1346, | | PM PDT | | | | | Jay well., Post-op/Phase II | | | | | | + +-------+ +-------+---+---+ +---+---+ | | | +---+---+ documented in this encounter
--- OUTSIDE RECORDS SUMMARY | ~2019-02-20 | XMS | Encounter Summary ---
Demographics + + + | Address | [address] [place] [address] | | | [place] [address] | + + + | Home Phone | | + + + | Preferred Language | Unknown | + + + | Marital Status | Single | + + + | Anabaptism Affiliation | Unknown | + + + | Race | Unknown | + + + | Ethnic Group | Unknown | + + + Author + + + | Author | [facility] | | | and Shashankana | + + + | Organization | [facility] | | | and Shashankana | + + + | Address | Unknown | + + + | Phone | Unavailable | + + + Care Team Providers + +------+ + | Care Decaler Name | Role | Phone | + +------+ + | Carolina Tapia MD | PCP | | + +------+ + Reason for Visit + + + | Reason | Comments | + + + | Procedure | check in time | + + + Encounter Details +--------+ + + + + | Date | Type | Department | Care Team | Description | +--------+ + + + + | 06/30/ | Telephone | [facility] [place] | Joshua Castillo MD | Procedure (check in | | 2014 | | OTOLARYNGOLOGY [address] | [address] [facility] | time) | | | | [address] | [address] [place], | | | | | [place] | [place] [address] | | | | | [address] | [phone] | | | | | [phone] | | | +--------+ + + + [...]
--- OUTSIDE RECORDS SUMMARY | ~2019-02-20 | XMS | Encounter Summary ---
Demographics + + + | Address | [address] [place] [address] | | | [place] [address] | + + + | Home Phone | | + + + | Preferred Language | Unknown | + + + | Marital Status | Single | + + + | Alevism Affiliation | Unknown | + + + | Race | Unknown | + + + | Ethnic Group | Unknown | + + + Author + + + | Author | [facility] | | | and Shashankana | + + + | Organization | [facility] | | | and Shashankana | + + + | Address | Unknown | + + + | Phone | Unavailable | + + + Care Team Providers + +------+ + | Care Geological Technical Officer Name | Role | Phone | + +------+ + | Juan Luis Tapia MD | PCP | | + +------+ + Reason for Visit + + + | Reason | Comments | + + + | New Patient | tonsils,patient states that she has no pain | + + + Evaluate & Treat (Routine) +--------+--------+ + + + + | Status | Reason | Specialty | Diagnoses / | Referred By | Referred To | | | | | Procedures | Contact | Contact | +--------+--------+ + + + + | Closed | | Otolaryngolog | Diagnoses | [place], | Joshua Villafuerte | | | | y | | MD Juan Luis | MD Gabrielle [address] | | | | | Streptococca | [address] | | | | | l sore | [address] [place] | [address] | | | | | throat | [place], [place] | [place], | | | | | Tonsilits/Me | [address] | [place] [address] | | | | | dicaid/Ehler | Phone: | Phone: | | | | | s/CALLYELLOW | [phone] | [phone] | | | | | [place] | Fax: | Fax: | | | | | Procedures | [phone] | [phone] | | | | | NEW PATIENT | | | +--------+--------+ + + + + Encounter Details +--------+---------+ + + + | Date | Type | Department | Care Team | Description | +--------+---------+ + + + | 05/15/ | Office | [facility] | Joshua Villafuerte MD | Chronic tonsillitis | | 2015 | Visit | OTOLARYNGOLOGY [address] | [address] [place] | (Primary Dx) | | | | [address] | [address] [place], | | | | | [place] | [place] [address] | | | | | [address] | [phone] | | | | | [phone] | | | +--------+---------+ + + + [...] + + + | Blood Pressure | 100/66 | 05/15/2014 3:11 PM | | | | | PST | | + + + + + | Pulse | 66 | 05/15/2014 3:11 PM | | | | | PST | | + + + + + | Temperature | - | - | | + + + + + | Respiratory Rate | - | - | | + + + + + | Oxygen Saturation | - | - | | + + + + + | Inhaled Oxygen | - | - | | | Concentration | | | | + + + + + | Weight | 51.3 kg (113 lb) | 05/15/2014 3:11 PM | | | | | PST | | + + + + + | Height | 154.9 cm (5' 1") | 05/15/2014 3:11 PM | | | | | PST | | + + + + + | Body Mass Index | 21.35 | 05/15/2014 3:11 PM | | | | | PST | | + + + + + documented in this encounter Progress Notes Joshua Villafuerte MD - 05/15/2014 5:32 PM PST [facility] OTOLARYNGOLOGY [address] [facility] [address] OFFICE NOTE JOSHUA VILLAFUERTE MD Patient: KADEN MONIQUE Admitting: MR #: [id number] LOC: PT TYPE: Adm Date: 05/15/2014 : 2000 NEW PATIENT VISIT DATE OF VISIT: 05/15/2014 The patient comes in with a history of chronic recurrent tonsillar infections. Over the l ast 2 years she has been treated between 5 and 6 times for strep throat. In between the in fections she will often have soreness of her throat. It will hurt for a day or 2 and then seem to settle down. She has become very tired of the tonsil infections. She was sent fo r consideration of having her tonsils removed. She is not having any other ENT complaints. EXAMINATION: GENERAL: Shows an alert 13-year-old patient, accompanied by her mother. She communicates well. Her voice quality is good. HEENT: Skin of the face, nose and ears all appear to be healthy. Parotid, submandibular g land areas are smooth. Facial movement is symmetrical, without any weakness noted. Ear ca nals are open, they are clean. The drums are clear. There is no middle ear effusion or a bnormality noted. Nasal passages: No obstruction, no mass or lesion. She feels she is ebony athing well through the nasal passages. Floor of the mouth, buccal mucosa, hard palate, te eth, lips, gums are healthy. Tonsils are about a +3 in the right and +2 on the left. There is a lot of scar tissue in both of them. Posterior pharyngeal wall was smooth. Tongue an d soft palate are smooth and move symmetrically. NECK: There are no masses or lymphadenopa thy. Thyroid gland is smooth and trachea is midline. IMPRESSION: Chronic tonsillitis. PLAN: The patient is scheduled for a tonsillectomy, possible adenoidectomy. Nasopharynx will be examined to be sure there are no large adenoids. The surgery along with risks and benefits were discussed well with the patient and her mother. Risks of bleeding, anesthes ia, infection were all discussed at length. The patient and mother desire to go ahead with the surgery as planned and this is scheduled accordingly JOSHUA VILLAFUERTE MD Dictated by JOSHUA VILLAFUERTE MD 05/15/2014 17:32:42 Transcribed on 05/16/2014 03:49:57 by pito job# [id number] Confirmation #: [id number] cc: JUAN LUIS TAPIA MD [facility], Joshua Anthony MD - 05/15/2014 5:29 PM PSTSee dictation # [id number] signed by Joshua Villafuerte MD at 05/15/2014 5:33 PM PSTdocumented in th is encounter Plan of Treatment Not on filedocumented as of this encounter Visit Diagnoses + + | Diagnosis | + + | Chronic tonsillitis - Primary | + + documented in this encounter
--- OUTSIDE RECORDS SUMMARY | ~2019-02-20 | XMS | Encounter Summary ---
Demographics + + + | Address | [address] [place] [address] | | | [place] [address] | + + + | Home Phone | | + + + | Preferred Language | Unknown | + + + | Marital Status | Single | + + + | Christian Affiliation | Unknown | + + + | Race | Unknown | + + + | Ethnic Group | Unknown | + + + Author + + + | Author | [facility] | | | and Shashankana | + + + | Organization | [facility] | | | and Shashankana | + + + | Address | Unknown | + + + | Phone | Unavailable | + + + Care Team Providers + +------+ + | Care Diamond Sizer And Grader Name | Role | Phone | + [...] + + | 06/30/ | Telephone | [facility] [place] | Joshua Castillo MD | Procedure (check in | | 2014 | | OTOLARYNGOLOGY [address] | [address] [facility] | time) | | | | [address] | [address] [place], | | | | | [place] | [place] [address] | | | | | [address] | [phone] | | | | | [phone] | | | +--------+ + + + [...]
--- OUTSIDE RECORDS SUMMARY | ~2019-02-20 | XMS | Encounter Summary ---
Demographics + + + | Address | [address] [place] [address] | | | [place] [address] | + + + | Home Phone | | + + + | Preferred Language | Unknown | + + + | Marital Status | Single | + + + | Faith Affiliation | Unknown | + + + | Race | Unknown | + + + | Ethnic Group | Unknown | + + + Author + + + | Author | [facility] | | | and Shashankana | + + + | Organization | [facility] | | | and Shashankana | + + + | Address | Unknown | + + + | Phone | Unavailable | + + + Care Team Providers + +------+ + | Care Oil Extractor Name | Role | Phone | + [...] disease of | [place], [place] | [place] [address] | | | | | tonsils and | [address] | Phone: | | | | | adenoids | Phone: | [phone] | | | | | Procedures | [phone] | Fax: | | | | | AR REMOVE | Fax: | [phone] | | | | | TONSILS/LAMONTE | [phone] | | | | | | OIDS,10+ Y/O | | | +--------+ + + + + + Encounter Details +--------+ + + + + | Date | Type | Department | Care Team | Description | +--------+ + + + + | 05/16/ | Orders Only | [facility] | Joshua Castillo MD | Chronic tonsillitis | | 2015 | | OTOLARYNGOLOGY [address] | [address] [place] | (Primary Dx) | | | | [address] | [address] [place], | | | | | [place] | [place] [address] | | | | | [address] | [phone] | | | | | [phone] | | | +--------+ + + + [...]
--- OUTSIDE RECORDS SUMMARY | ~2019-02-20 | XMS | Encounter Summary ---
Demographics + + + | Address | [address] [place] [address] | | | [place] [address] | + + + | Home Phone | | + + + | Preferred Language | Unknown | + + + | Marital Status | Single | + + + | Gnosticism Affiliation | Unknown | + + + | Race | Unknown | + + + | Ethnic Group | Unknown | + + + Author + + + | Author | [facility] | | | and Shashankana | + + + | Organization | [facility] | | | and Shashankana | + + + | Address | Unknown | + + + | Phone | Unavailable | + + + Care Team Providers + +------+ + | Care Paper Cutter Name | Role | Phone | + [...] | | | | | | | [place] REMOVAL | | | | | | | OF | | | | | | | TONSILS,12+ | | | | | | | Y/O [place] | | | | | | | [...] | | | | | [address] | [address] [place] | | | | | [place] | [address] | | | | | [address] | | | | | | [phone] | | | +--------+ + + + [...] + | | 1 | Beta | {:[id number]"The patient took a beta-nirav the day prior [...] +----+---+ + + | | 1 | [place] | | | | 2 | 43-degrees | | | | 0 | | | | | 4 | | | +----+---+ + + | | 1 | [place] off | | | | 2 | [...]
--- OUTSIDE RECORDS SUMMARY | ~2019-02-20 | XMS | Clinical Summary ---
Demographics + + + | Address | [address] [place] [address] | | | [place] [address] | + + + | Home Phone | | + + + | Preferred Language | Unknown | + + + | Marital Status | Single | + + + | Sikh Affiliation | Unknown | + + + | Race | Unknown | + + + | Ethnic Group | Unknown | + + + Author + + + | Author | [facility] | | | and Shashankana | + + + | Organization | [facility] | | | and Shashankana | + + + | Address | Unknown | + + + | Phone | Unavailable | + + + Care Team Providers + +------+ + | Care Squeegee Tender Name | Role | Phone | + [...] | [employer] | [employer] | [id number] | 03/06/ | [phone] | | Medica | | MEDICAID HMO | HEALTH | | 2014-P | 1 | | id | | | MDCD | | resent | | | | | | [place]MO [place] | | | | | | + +--------+ +--------+ +---------+--------+ | [facility] | IHS | [id number] | 04/30/19 | | | Indemn | [...] Person | Mother | [birth year] | [address] [facility] | | | al/Fam | | 1980 | [phone] | [place] [address] | | | destiny | | | 8 (Home) | | + +--------+ +--------+ + + Advance Directives + + + + + | Type | Date Recorded | Patient | Explanation | | | | Social Service Liaison | | + + + + + | Power of | | | | | Guide | | | | + + + [...]
--- OUTSIDE RECORDS SUMMARY | ~2019-02-20 | XMS | Encounter Summary ---
Demographics + + + | Address | [address] [place] [address] | | | [place] [address] | + + + | Home Phone | | + + + | Preferred Language | Unknown | + + + | Marital Status | Single | + + + | Confucianist Affiliation | Unknown | + + + | Race | Unknown | + + + | Ethnic Group | Unknown | + + + Author + + + | Author | [facility] | | | and Shashankana | + + + | Organization | [facility] | | | and Shashankana | + + + | Address | Unknown | + + + | Phone | Unavailable | + + + Care Team Providers + +------+ + | Care Safety Intern Name | Role | Phone | + [...] | | | | | | | [place] REMOVAL | | | | | | | OF | | | | | | | TONSILS,12+ | | | | | | | Y/O [place] | | | | | | | [...] + + | 07/04/ | Surgery | [facility] | Joshua Castillo MD | Tonsillectomy | | 2014 | | MED CTR OR INTRA OP | [address] [place] | | | | | [address] | [address] [place], | | | | | [place], [place] | [place] [address] | | | | | [address] | [phone] | | | | | [phone] | | | +--------+---------+ + + + [...] or blood-tinged spit that continues Trouble breathing [id number] [employer]. [address] [place] [address]. All righ ts reserved. This information is [...] when the tonsils and adenoids are removed. [id number] [employer]. [address] [place] [address]. All righ ts reserved. This information is [...] Specific | | | | | | [place], | | | | | | POC [...]
--- OUTSIDE RECORDS SUMMARY | ~2019-02-20 | XMS | Encounter Summary ---
Demographics + + + | Address | [address] [place] [address] | | | [place] [address] | + + + | Home Phone | | + + + | Preferred Language | Unknown | + + + | Marital Status | Single | + + + | Catholic Affiliation | Unknown | + + + | Race | Unknown | + + + | Ethnic Group | Unknown | + + + Author + + + | Author | [facility] | | | and Shashnakana | + + + | Organization | [facility] | | | and Shashankana | + + + | Address | Unknown | + + + | Phone | Unavailable | + + + Care Team Providers + +------+ + | Care Teradata Architect Name | Role | Phone | + [...] | | | | | | | [place]AL | | | | | | | OF | | | | | | | TONSILS,12+ | | | | | | | Y/O [place] | | | | | | | [...] + + | 07/04/ | Hospital | [facility] | Joshua Castillo MD | Chronic tonsillitis | | 2015 | Encounter | MED CTR OR INTRA OP | [address] [facility] | (Primary Dx) | | | | [address] | [address] [place], | | | | | [place] | [place] [address] | | | | | [address] | [phone] | | | | | [phone] | | | +--------+ + + + [...] or blood-tinged spit that continues Trouble breathing [id number] [employer]. [address] [place] [address]. All rig ts reserved. This information is [...] when the tonsils and adenoids are removed. [id number] [employer]. [address] [place] [address]. All righ ts reserved. This information is [...] Specific | | | | | | [place], | | | | | | POC [...]
--- OUTSIDE RECORDS SUMMARY | ~2019-02-20 | XMS | Encounter Summary ---
Demographics + + + | Address | [address] [place] [address] | | | [place] [address] | + + + | Home Phone | | + + + | Preferred Language | Unknown | + + + | Marital Status | Single | + + + | Islam Affiliation | Unknown | + + + | Race | Unknown | + + + | Ethnic Group | Unknown | + + + Author + + + | Author | [facility] | | | and Shashankana | + + + | Organization | [facility] | | | and Shashankana | + + + | Address | Unknown | + + + | Phone | Unavailable | + + + Care Team Providers + +------+ + | Care Insole Taper Name | Role | Phone | + [...] | | | | | Tonsilits/Me | [address] | [place] [address] | | | | | dicaid/[place] | Phone: | Phone: | | | | | s/CALLYELLOW | [phone] | [phone] | | | | | [place] | Fax: | Fax: | | | | | Procedures | [phone] | [phone] | | | | | NEW PATIENT | | | +--------+--------+ + + + + Encounter Details +--------+---------+ + + + | Date | Type | Department | Care Team | Description | +--------+---------+ + + + | 05/15/ | Office | [facility] | Joshua Villafeurte MD | Chronic tonsillitis | | 2015 | Visit | OTOLARYNGOLOGY [address] | [address] [place] | (Primary Dx) | | | | [address] [place] [address] | [address], | | | | | [place] | [place] [address] | | | | | [address] | [phone] | | | | | [phone] | | | +--------+---------+ + + + [...] MD - 05/15/2014 5:32 PM PST [facility] OTOLARYNGOLOGY [address] [facility] [address] OFFICE NOTE JOSHUA VILLAFUERTE MD Patient: KADEN MONIQUE Admitting: MR #: [id number] LOC: PT TYPE: Adm Date: 05/15/2014 : [...] scheduled accordingly JOSHUA VILLAFUERTE MD Dictated by OJSHUA VILLAFUERTE MD 05/15/2014 17:32:42 Transcribed on 05/16/2014 03:49:57 by pito job# [id number] Confirmation #: [id number] cc: JUAN LUIS TAPIA MD [facility], Joshua Anthony MD - 05/15/2014 5:29 PM PSTSee dictation # [id number] signed by Joshua Villafuerte MD at 05/15/2014 5:33 PM PSTdocumented in th is encounter Plan of Treatment Not on filedocumented as of this encounter Visit Diagnoses + + | Diagnosis | + + | Chronic tonsillitis - Primary | + + documented in this encounter
[~2019-02-20 23:41] MED LIST changes: +AMOX TR-K CLV1 EAC1 PO; +FERROUS SULFAT325 MG PO; +IBUPROFEN800 MG PO; +PERCOCET 5-3251 EACH PO
[2019-02-20] MEDS ORDERED: ZOLOFT25 MG PO (23:56)
== END 2019-02-21 01:30 | disposition home or self-care (01) ==
LOC: ED 23:41
DX: R10.13 Epigastric pain (principal); E87.6 Hypokalemia; Z79.899 Other long term (current) drug therapy
CPT/HCPCS: 80053; 81001; 83690; 84703; 85025; 96361; 96374; 96375; 99284-25; J1170; J2405; J7030

== ENCOUNTER 2019-03-11 06:49 | Day surgery (SDC) | payer OTHER ==
[~2019-03-11] VITALS: Ht 157.5 cm; Wt 68.0 kg
[~2019-03-11 06:49] MED LIST changes: +RANITIDINE HCL150 MG PO; +ZOLOFT25 MG PO
--- NOTE | 2019-03-11 08:25 | NUR ---
PT IS ALERT, ORIENTED AND SUPPORTED BY HER FRIEND IAIN. PT IS RATHER QUIET, MAYBE A LITTLE OVERWHELMED. WORKED TO HELP HER BE MORE AT EASE WITH TODAY. SHE IS PLEASANT, REQUESTED PRAYER. WILL FOLLOW NEEDED
--- NOTE | 2019-03-11 09:53 | NUR ---
03/11/19 0953 Nancy Sepulveda 0946- PT TO PACU IN SF POSITION. EYES CLOSED. DOES NOT RESPOND TO VERBAL OR LIGHT TACTILE STIMULI. BREATHING EASY AND UNLABORED. SP02 >95% ON 6 L O2 VIA MASK. DRESSINGS CDI. REPORT FROM CABIN EQUIPMENT SUPERVISOR RECEIVED 0950- PT CONTINUES TO SLEEP. DOES NOT RESPOND TO VERBAL OR LIGHT TACTILE STIMULI. BREATHING EASY AND UNLABORED SP02 >95% ON 6 L O2 VIA MASK. DRESSINGS CDI.
[2019-03-11] MEDS ORDERED: NORCO 5-325 TA1 EACH PO (11:22)
--- NOTE | 2019-03-11 11:39 | OR ---
[facility] [address], [place] [address] Signed DATE OF OPERATION: 03/11/2019 SURGEON: Natalia Lopez MD PREOPERATIVE DIAGNOSES: Cholecystitis and cholelithiasis. POSTOPERATIVE DIAGNOSES: Cholecystitis and cholelithiasis. PROCEDURE: Laparoscopic cholecystectomy with intraoperative cholangiogram. ESTIMATED BLOOD LOSS: None. FINDINGS: The intraoperative cholangiogram was unremarkable. Specifically, no filling defects. It was a little dilated in the midportion. She did have multiple stones nearly filling the gallbladder. Mostly small yellow cholesterol stones just a few millimeters in diameter with some gallbladder wall thickening and some additional sludge. INDICATIONS: Kaden is a 18-year-old female, who just had her 1st child about six months ago. She continues to breastfeed. The baby is doing quite well. She was actually again, but had a spontaneous miscarriage. In the meantime, she was having right upper quadrant abdominal pain. It was made worse by eating. Her ultrasound confirmed multiple shadowing gallstones and a 4 mm thick gallbladder wall. The common bile duct was a little dilated around 10.7 mm. She was asked to see me with respect to the above. I met with Kaden and her boyfriend, Josef. I gave him a brochure on the gallbladder and we looked at that carefully. They understand the location of function of the gallbladder. We also discussed laparoscopic versus open cholecystectomy. We did review the expected intraop and postop course. They understand there is risk to surgery including, but not limited to bleeding, infection, scarring, change in contour of the skin, damage to bowel, damage to main bile duct, incisional hernias and other unforeseen comorbidities. She had expressed understanding and wished to proceed. PROCEDURE NOTE: I met with Kaden and her boyfriend in our preop area. After answering the questions, we took Kaden into the operating room. She was placed in the supine position under general Electronically Signed By: NATALIA LOPEZ MD 03/11/19 1139 PATIENT NAME: KADEN MONIQUE OPERATIVE REPORT DATE OF : [birth year] REPORT #: [id number] PHYSICIAN: NATALIA LOPEZ MD PCP: HELADIO HALL MD REPORT IS CONFIDENTIAL AND NOT TO BE RELEASED WITHOUT AUTHORIZATION [facility] [address] [place] [id number] Signed endotracheal tube anesthesia. She was given preoperative antibiotics along with subcutaneous heparin. SCDs were utilized. All trocars were placed in usual positions under direct visualization of camera without difficulty. The gallbladder was grasped and elevated in the right upper quadrant. The findings were as above. The triangle of Calot was dissected free and a clip was placed across the cystic artery and it was divided. The cystic duct was opened and the intraoperative cholangiocatheter was inserted. The intraoperative cholangiogram was then performed. The cystic duct stump was secured with a PDS Endoloop. Three clips had been placed across the cystic duct stump to tree its location. The gallbladder was then removed from the gallbladder fossa with the help of the cautery and placed into an EndoCatch bag. We then used our laparoscopic suturing device to pass 0 Vicryl suture on either side of the fascia at the subxiphoid trocar site. This was tied down to close this fascia primarily. After this, all the gas was allowed to escape and all the trocars were removed. We then passed the gallbladder off the field to our circulating nurse for additional photograph. The fascia of the supraumbilical trocar site was closed with interrupted and [id number] 0 Vicryl suture. Local anesthetic was injected into all trocar sites. Each trocar site was irrigated and suctioned out until clear. The skin and dermis were closed with interrupted 3-0 subcuticular Monocryl sutures. Mastisol and Steri-Strips were applied to her incisions. Dry gauze and tape were applied over this. She was then awakened from anesthesia, extubated in the OR, and taken to recovery room in stable condition. Natalia Lopez MD ALB/MODL /[id number] cc: MD Jp Vega MD Copies: NATALIA LOPEZ MD, JOSEPH Electronically Signed By: NATALIA LOPEZ MD 03/11/19 1139 PATIENT NAME: KADEN MONIQUE OPERATIVE REPORT DATE OF : [birth year] REPORT #: [id number] PHYSICIAN: NATALIA LOPEZ MD PCP: HELADIO HALL MD REPORT IS CONFIDENTIAL AND NOT TO BE RELEASED WITHOUT AUTHORIZATION [address] [address] Signed HELADIO HALL MD ~ Electronically Signed By: NATALIA LOPEZ MD 03/11/19 1139 PATIENT NAME: KADEN MONIQUE OPERATIVE REPORT DATE OF : [birth year] REPORT #: [id number] PHYSICIAN: NATALIA LOPEZ MD PCP: HELADIO HALL MD REPORT IS CONFIDENTIAL AND NOT TO BE RELEASED WITHOUT AUTHORIZATION
--- NOTE | 2019-03-11 12:15 | NUR ---
PATIENT PAIN WELL CONTROLLED WITH PO NORCO, RATES 3/10 ON PAIN SCALE AND REFERS TO THE PAIN A DULL ACHE. PATIENT AMBULATED TO BATHROOM, STEADY ON FEET. VOIDED CLEAR YELLOW URINE, 700ML. BACK TO ROOM, DC IV, PATIENT DRESSED. PROVIDED DISCHARGE INSTRUCTION, ANSWERED QUESTIONS AND CONCERNS. PROVIDED WHEEL CHAIR RIDE TO CAR, PATIENT WITH HARRIET HURD.
== END 2019-03-11 12:15 | disposition home or self-care (01) ==
LOC: DS 06:49
PROVIDERS: Colon & Rectal Surgery
PROC: BF13YZZ Fluoroscopy of Gallbladder and Bile Ducts using Other Contrast (ICD-10-PCS; 2019-03-11)
PROC: 0FT44ZZ Resection of Gallbladder, Percutaneous Endoscopic Approach (ICD-10-PCS; principal; 2019-03-11 08:00)
DX: K80.10 Calculus of gallbladder with chronic cholecystitis without obstruction (principal); Z79.899 Other long term (current) drug therapy
CPT/HCPCS: 00790; 74300; J0690; J1100; J1644; J1885; J2250; J2300; J2405; J2704; J3475; J7121; Q9967

== ENCOUNTER 2020-04-30 13:40 | Emergency (ER) | payer OTHER ==
[~2020-04-30] VITALS: Ht 157.5 cm; Wt 60.3 kg
[~2020-04-30 13:40] MED LIST changes: +NORCO 5-325 TA1 EACH PO
--- NOTE | 2020-05-01 16:57 | EKG ---
[facility] [address] [facility] [place] [address] Signed Normal sinus rhythm Prolonged QT Abnormal ECG No previous ECGs available Confirmed by BEN FOX MD ([id number]) on 05/01/2020 4:56:45 PM Electronically Signed By: BEN FOX MD 05/01/20 1657 PATIENT NAME: KADEN MONIQUE NIDIA Electrocardiogram DATE OF : [birth year] PHYSICIAN: BEN FOX MD REPORT #: [id number] REPORT IS CONFIDENTIAL AND NOT TO BE RELEASED WITHOUT AUTHORIZATION
== END 2020-04-30 15:42 | disposition home or self-care (01) ==
LOC: ED 13:40
DX: R20.2 Paresthesia of skin (principal)
CPT/HCPCS: 80048; 83735; 84443; 85025; 93005; 93010; 99284-25

== ENCOUNTER 2023-11-22 13:43 | Emergency (ER) | payer OTHER ==
[~2023-11-22] VITALS: Ht 157.5 cm; Wt 75.1 kg
[2023-11-22] MEDS ORDERED: SODIUM CHLORIDE 0.9% 1,000 ML IV PRN (14:15)
[2023-11-22] MEDS ORDERED: LORazepam 2 MG/ML VIAL IV ONE (14:15)
[2023-11-22] MEDS ORDERED: ondansetron HCL 4 MG/2 ML VIAL IV ONE (14:15)
[2023-11-22 14:27] LABS: BASOPHILS 0.3 % (0-2); EOSINOPHILS 0.8 % (0-6); HEMOGLOBIN 13.5 g/dL (12.0-18.0); LYMPHOCYTES 16.2 % (24-44); MCH 30.4 (27-36); MCHC 33.6 g/dl (30-36); MCV 90.3 fl (81-99); MONOCYTES 5.9 % (0-12); NEUTROPHILS 76.8 % (39-80); PLATELET COUNT 366 K/uL (140-440); RBC 4.43 M/ul (4.3-5.7); RDW 12.9 (10.5-15.0)
[2023-11-22 14:37] LABS: INR 0.96 (0.80-1.30); PROTIME 12.4 Sec (11.2-14.2)
[2023-11-22 14:39] LABS: PARTIAL THROMBOPLASTIN TIME 26.6 Sec (22.9-41.3)
[2023-11-22 14:49] LABS: ALBUMIN 4.1 g/dL (3.4-5.0); ALBUMIN/GLOBULIN RATIO 1.11 (1.1-2.4); ALCOHOL, MEDICAL <3 ng/dL (<3); ALKALINE PHOSPHATASE 59 U/L (46-116); ALT (SGPT) 23 U/L (14-59); ANION GAP 15.5 (7-21); AST (SGOT) 20 U/L (15-37); BILIRUBIN, TOTAL 0.5 ng/dL (0.2-1.0); BUN/CREATININE RATIO 14.77 (6.0-28.6); CARBON DIOXIDE 25 mmol/L (21-32); CHLORIDE 101 mmol/L (98-107); CREATININE, SERUM 0.88 mg/dL (0.55-1.02); GLOMERULAR FILTRATION RATE,EST 93 mL/min (>60); MAGNESIUM 1.6 mg/dL (1.8-2.4); POTASSIUM 3.5 mmol/L (3.5-5.1); PROTEIN, TOTAL 7.8 g/dL (6.4-8.2); UREA NITROGEN 13 mg/dL (7-18)
[2023-11-22 15:15] LABS: AMPHETAMINES, URINE NEGATIVE (NEGATIVE); BARBITURATES, URINE NEGATIVE (NEGATIVE); BENZODIAZEPINE, URINE NEGATIVE (NEGATIVE); BUPRENORPHINE, URINE NEGATIVE (NEGATIVE); CANNABINOID, URINE POSITIVE (NEGATIVE); COCAINE, URINE POSITIVE (NEGATIVE); ECSTASY, URINE NEGATIVE (NEGATIVE); FENTANYL, URINE NEGATIVE (NEGATIVE); METHADONE, URINE NEGATIVE (NEGATIVE); OPIATES, URINE NEGATIVE (NEGATIVE); OXYCODONE, URINE NEGATIVE (NEGATIVE); PHENCYCLIDINE, URINE NEGATIVE (NEGATIVE)
[2023-11-22 16:35] VITALS: BP 115/81
--- NOTE | 2023-11-24 13:29 | EKG ---
[facility] [address] [facility] [place], [place] [address] Signed Normal sinus rhythm Normal ECG When compared with ECG of 30-APR-2020 13:55, No significant change was found Confirmed by Major Harmon MD ([id number]) on 11/24/2023 1:29:37 PM Electronically Signed By: MAJOR HARMON 11/24/23 1329 PATIENT NAME: KADEN MONIQUE Electrocardiogram DATE OF : [birth year] PHYSICIAN: MAJOR HARMON REPORT #: [id number] REPORT IS CONFIDENTIAL AND NOT TO BE RELEASED WITHOUT AUTHORIZATION
== END 2023-11-22 16:35 | disposition home or self-care (01) ==
LOC: ED 13:43
PROVIDERS: Emergency Medicine
DX: T40.5X1A Poisoning by cocaine, accidental (unintentional), initial encounter (principal); R07.9 Chest pain, unspecified; F14.10 Cocaine abuse, uncomplicated
CPT/HCPCS: 36415; 71045; 80053; 80307; 83735; 83880; 84484; 84703; 85025; 85610; 85730; 93005; 93010; 96374; 96375; 99285-25; G0480; J2060; J2405; J7030

== ENCOUNTER 2023-11-27 06:29 | Emergency (ER) | payer OTHER ==
[~2023-11-27] VITALS: Ht 157.5 cm; Wt 78.0 kg
--- OUTSIDE RECORDS SUMMARY | 2023-11-27 06:30 | XMS ---
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 [place]a has no Care Guidelines for this patient. [place] V[facility] (12 MO.) [facility] NOTE: Visits indicate total known visits. ED/[facility] VISIT TRACKING (12 MO.) [facility]23 [facility] COMPLAINT: - CHEST PAIN 11/22/2023 13:43 Y[facility] Prit[facility] OR TYPE: Emergency COMPLAINT: - POSS OVERDOSE DIAGNOSES: - Chest pain, unspecified - Cocaine abuse, uncomplicated - Poisoning by cocaine, accidental (unintentional), initial encounter - Shortness of breath INPATIENT VISIT TRACKING (12 MO.) No inpatient visits to display in this time frame [email or web address]
[2023-11-27] MEDS ORDERED: METOPROLOL TARTRATE 5 MG/5 ML VIAL IV ONE (06:45)
[2023-11-27 06:51] LABS: BASOPHILS 0.4 % (0-2); EOSINOPHILS 0.1 % (0-6); HEMATOCRIT 39.3 % (35.0-50.0); HEMOGLOBIN 13.5 g/dL (12.0-18.0); LYMPHOCYTES 15.5 % (24-44); MCH 30.7 (27-36); MCHC 34.3 g/dl (30-36); MCV 89.5 fl (81-99); PLATELET COUNT 358 K/uL (140-440); RBC 4.39 M/ul (4.3-5.7); RDW 12.6 (10.5-15.0)
[2023-11-27 07:11] LABS: ALBUMIN 4.1 g/dL (3.4-5.0); ALBUMIN/GLOBULIN RATIO 1.05 (1.1-2.4); ALKALINE PHOSPHATASE 59 U/L (46-116); ALT (SGPT) 34 U/L (14-59); ANION GAP 15.5 (7-21); AST (SGOT) 23 U/L (15-37); BILIRUBIN, TOTAL 0.4 ng/dL (0.2-1.0); BUN/CREATININE RATIO 10.97 (6.0-28.6); CALCIUM 9.1 mg/dL (8.5-10.1); CARBON DIOXIDE 25 mmol/L (21-32); CHLORIDE 102 mmol/L (98-107); CREATININE, SERUM 0.82 mg/dL (0.55-1.02); GLOMERULAR FILTRATION RATE,EST 102 mL/min (>60); MAGNESIUM 1.6 mg/dL (1.8-2.4); POTASSIUM 3.5 mmol/L (3.5-5.1); UREA NITROGEN 9 mg/dL (7-18)
[2023-11-27 07:42] VITALS: BP 118/81
--- NOTE | 2023-11-28 19:34 | EKG ---
[facility] [address] [facility] [place] [facility] [place] [address] Signed Sinus tachycardia Otherwise normal ECG When compared with ECG of 22-NOV-2023 13:58, No significant change was found Confirmed by Alfredito Zavala MD ([id number]) on 11/28/2023 7:34:37 PM Electronically Signed By: ALFREDITO ZAVALA MD 11/28/231933 PATIENT NAME: KADEN MONIQUE NIDIA Electrocardiogram DATE OF : [birth year] PHYSICIAN: ALFREDITO ZAVALA MD REPORT #: [id number] REPORT IS CONFIDENTIAL AND NOT TO BE RELEASED WITHOUT AUTHORIZATION
== END 2023-11-27 07:42 | disposition home or self-care (01) ==
LOC: ED 06:29
PROVIDERS: Family Medicine
DX: F14.10 Cocaine abuse, uncomplicated (principal); R07.9 Chest pain, unspecified; R06.02 Shortness of breath
CPT/HCPCS: 36415; 71045; 80053; 83735; 84484; 84703; 85025; 93005; 93010; 99285-25